=== PATIENT | female | born 1945 | race Caucasian/White ===

== ENCOUNTER 2019-11-19 19:35 | Inpatient (IN) | payer MEDICARE, OTHER ==
[2019-11-19] MEDS ORDERED: HumaLOG 300 UNITS/3 ML VIAL SC PRN (21:24)
[2019-11-19] MEDS ORDERED: Dextrose 50% Abboject 50 ML SYRINGE IVP PRN (21:24)
[2019-11-19] MEDS ORDERED: Dextrose 5% in Water 1,000 ML IV PRN (21:24)
[2019-11-19] MEDS ORDERED: traMADol HCl 50 MG TAB PO PRN (21:26)
[2019-11-19 21:40] VITALS: BMI 29.5
[2019-11-19] MEDS: traMADol HCl 50 MG TAB PO PRN (21:54)
[2019-11-19] MEDS ORDERED: Atorvastatin Calcium 40 MG TAB PO SCH (22:00)
[2019-11-19] MEDS ORDERED: Gabapentin 300 MG CAP PO SCH (22:00)
[2019-11-19] MEDS ORDERED: Nebivolol HCl 2.5 MG TAB PO SCH (22:00)
[2019-11-20] MEDS: Levothyroxine Sodium 50 MCG TAB PO SCH (05:15)
[2019-11-20] MEDS: traMADol HCl 50 MG TAB PO PRN ×2 (05:18→15:13)
[2019-11-20] MEDS: HumaLOG 300 UNITS/3 ML VIAL SC PRN ×3 (06:23→17:25)
[2019-11-20] MEDS: Potassium Chloride 10 MEQ TAB PO SCH (08:12)
[2019-11-20] MEDS: Furosemide 40 MG TAB PO SCH (08:12)
[2019-11-20] MEDS: metFORMIN 500 MG TAB PO SCH ×2 (08:12→17:24)
[2019-11-20] MEDS: Aspirin 81 mg Enteric Coated Tablet PO SCH (08:12)
[2019-11-20] MEDS: Clopidogrel Bisulfate 75 MG TAB PO SCH (08:13)
[2019-11-20] MEDS: Ezetimibe 10 MG TAB PO SCH (08:13)
--- NOTE | 2019-11-20 19:12 | HP ---
PRINCIPAL DIAGNOSES: Recent admission to the hospital for shortness of breath and was diagnosed with acute hypoxemic respiratory failure, acute on chronic diastolic congestive heart failure and atelectasis, and was felt to be a candidate for physical therapy and transferred here. The patient is up in her chair and has oxygen at 1 L/minute via nasal cannula. She states that she has been compliant with her incentive spirometry. She denies any PND or orthopnea. She denies any pain. She does state that she cannot take the statin and wants it off her list. She apparently is on injectable medication every 2 weeks. No fever or chills. Denies any cough. PAST MEDICAL HISTORY: 1. Diabetes mellitus type 2. 2. Hypertension. 3. Dyslipidemia. 4. Coronary artery disease, status post recent CABG. 5. Acute hypoxemic respiratory failure. 6. Chronic diastolic congestive heart failure. 7. Resolved leukocytosis. 8. Anemia, likely due to acute blood loss. PAST SURGICAL HISTORY: 1. Appendectomy. 2. Cholecystectomy. 3. Recent coronary artery bypass grafting. 4. History of coronary angiogram and stent placement in the past. FAMILY HISTORY: Positive for diabetes mellitus. ALLERGIES: CODY INHIBITORS, MORPHINE, AND FENTANYL. MEDICATIONS: She has been transferred here on the following medications; 1. Ecotrin aspirin 81 mg daily. 2. Lipitor 40 mg daily, but the patient states that it causes muscle aches and she does not want to take it. 3. Plavix 75 mg daily. 4. Lovenox which I have started her on 40 mg subcu daily. 5. Zetia 10 mg daily. 6. Lasix 40 mg daily. 7. Gabapentin 600 mg at bedtime. 8. Levoxyl 50 mcg daily. 9. Metformin 500 mg b.i.d. 10. Bystolic 5 mg daily. 11. Protonix 40 mg b.i.d. 12. Potassium chloride 10 mEq daily. 13. Tramadol 50 mg q.6 p.r.n. REVIEW OF SYSTEMS: CARDIOVASCULAR SYSTEM: Denies any chest pain, shortness of breath, palpitations, PND, orthopnea or pedal edema. Her incisional chest pain is improving. GENERAL: Denies any fever, chills, myalgia, improving fatigue. RESPIRATORY SYSTEM: Denies any chronic cough, expectoration, or pleuritic-type chest pain. GASTROINTESTINAL SYSTEM: Denies any nausea, vomiting, diarrhea, constipation, hematemesis, melena, or hematochezia. GENITOURINARY SYSTEM: Denies any frequency, urgency, dysuria, or hematuria. CENTRAL NERVOUS SYSTEM: Denies any focal numbness, weakness, or fainting spells. EENT: Denies any changes with her vision, hearing, or swallowing. SKIN: Denies any rash. EXTREMITIES: Occasional joint pains. PHYSICAL EXAMINATION: GENERAL: Pleasant 73-year-old female, who is up in her chair and in no distress. She responds appropriately to questions. She is alert, awake, and oriented x3. VITAL SIGNS: She is afebrile. Heart rate is 86, respirations 22, oxygen saturation 96% on 1 L via nasal cannula, blood pressure is 124/88. HEENT: Normocephalic and atraumatic. Pupils are equally reacting to light and accommodation. NECK: No JVD, thyromegaly, cervical adenopathy, or throat exudates. No carotid bruits. CARDIOVASCULAR SYSTEM: S1, S2 plus. Rate and rhythm regular. RESPIRATORY SYSTEM: Normal vesicular breath sounds heard in all lung cote with occasional rhonchi. ABDOMEN: Soft, nontender. Bowel sounds heard in all quadrants. EXTREMITIES: Without cyanosis or clubbing. Trace pedal edema. CENTRAL NERVOUS SYSTEM: Awake and responsive. Cranial nerves 2 through 12 intact. Grossly nonfocal. LABORATORY DATA: Laboratory values from this morning, I did ask nursing to put in an order for BMP and CBC, apparently this was not done. Her blood sugars are 207, 166, 156, and 167. They did do BNP, at 36.2. IMPRESSION: 1. Coronary disease status post recent coronary artery bypass graft. 2. Acute on chronic diastolic congestive heart failure, improving. 3. Diabetes mellitus type 2. 4. Hypertension. 5. Dyslipidemia. 6. Hypothyroidism. 7. Acute hypoxemic respiratory failure. PLAN: 1. Continue current medications. 2. 1800 calorie heart healthy ADA diet. 3. Accu-Cheks with sliding scale coverage. 4. DVT prophylaxis-we will start her on Lovenox. 5. Decubitus precautions. 6. Sternal precaution. 7. Stress ulcer prophylaxis. 8. Accu-Cheks with sliding scale coverage. 9. PT, OT eval and treat. 10. Stop statin per the patient's request. 11. Discussed with the patient in detail and all questions answered. Job ID: [id number]
[2019-11-20] MEDS ORDERED: Atorvastatin Calcium 40 MG TAB PO SCH (21:00)
[2019-11-20] MEDS: Enoxaparin Sodium 40 MG/0.4 ML SYRINGE SC SCH (21:10)
[2019-11-20] MEDS: Nebivolol HCl 2.5 MG TAB PO SCH (21:11)
[2019-11-20] MEDS: Gabapentin 300 MG CAP PO SCH (21:11)
[2019-11-21] MEDS: Levothyroxine Sodium 50 MCG TAB PO SCH (05:20)
[2019-11-21] MEDS: traMADol HCl 50 MG TAB PO PRN (05:20)
[2019-11-21 05:25] LABS: #Basophils 0.3 thou/uL (0.0-0.2); #Eosinphils 0.8 thou/uL (0.0-0.7); #Lymphocytes 3.1 thou/uL (1.20-3.40); #Monocytes 1.6 thou/uL (0.11-0.59); #Neutrophils 12.4 thou/uL (1.40-6.50); %Basophils 1.4 % (0.0-1.0); %Eosinophils 4.3 % (0.0-10.0); %Lymphocytes 17.3 % (21.0-51.0); %Monocytes 8.7 % (0.0-10.0); %Neutrophils 68.3 % (42.0-75.0); Hemoglobin 8.4 g/dL (12.0-16.0); Mean Corpuscular HGB CONC 32.2 g/dL (32.0-36.0); Mean Corpuscular Hemoglobin 30.5 pg (27.0-31.0); Mean Corpuscular Volume 94.8 fL (78.0-98.0); Mean Platelet Volume 7.2 fL (7.4-10.4); Platelet Count 539 thou/uL (130-400); RBC Distribution Width 14.6 % (11.5-14.5); Red Blood Cell (RBC) Count 2.75 mill/uL (4.20-5.40); White Blood Cell (WBC) Count 18.1 thou/uL (4.8-10.8)
[2019-11-21 05:41] LABS: Anion Gap 15 mmol/L (10-20); BUN (Urea Nitrogen) 28 mg/dL (9.8-20.1); Calc. Creatinine Clearance 56 mL/min (70-130); Carbon Dioxide 29 mmol/L (23-31); Chloride 94 mmol/L (98-107); Estimated GFR-MDRD 45; Glucose 152 mg/dL (83-110); Potassium 4.4 mmol/L (3.5-5.1); Sodium 134 mmol/L (136-145)
[2019-11-21] MEDS: HumaLOG 300 UNITS/3 ML VIAL SC PRN ×2 (05:49→11:56)
[2019-11-21] MEDS: Ondansetron ODT 4 MG TAB PO PRN (07:52)
[2019-11-21] MEDS: Furosemide 40 MG TAB PO SCH (07:53)
[2019-11-21] MEDS: Potassium Chloride 10 MEQ TAB PO SCH (07:53)
[2019-11-21] MEDS: Aspirin 81 mg Enteric Coated Tablet PO SCH (07:53)
[2019-11-21] MEDS: Clopidogrel Bisulfate 75 MG TAB PO SCH (07:53)
[2019-11-21] MEDS: metFORMIN 500 MG TAB PO SCH ×2 (07:53→17:06)
[2019-11-21] MEDS: Ezetimibe 10 MG TAB PO SCH (07:53)
--- NOTE | 2019-11-21 13:42 | PRG ---
DATE OF SERVICE: 11/21/2019 SUBJECTIVE: Ms. Al had an episode of nausea this morning and has resolved with Zofran. She is doing well otherwise. Denies any questions or concerns. OBJECTIVE: VITAL SIGNS: She is afebrile. Heart rate is 83, respirations 20, oxygen saturation 95% on 1 L, blood pressure is 117/59. CARDIOVASCULAR: S1 and S2 plus. RESPIRATORY: Normal vesicular breath sounds. ABDOMEN: Soft, nontender. Bowel sounds heard in all quadrants. EXTREMITIES: Without cyanosis or clubbing. Peripheral pulses are palpable. Sternal incision is healthy. CENTRAL NERVOUS SYSTEM: Improving deconditioning. LABORATORY DATA: White count is 18.1 with hemoglobin and hematocrit of 8.4 and 26.0. No bandemia. Sodium 134, potassium 4.4, BUN and creatinine 28 and 1.19. Blood sugars are 168, 166, 152, and 169. IMPRESSION: 1. Leukocytosis, unknown etiology. I am wondering whether some of it is related to demargination due to her nausea and vomiting early this morning. 2. Coronary artery disease, status post coronary artery bypass graft. 3. Diabetes mellitus type 2. 4. Acute hypoxemic respiratory failure. 5. Chronic diastolic congestive heart failure. 6. Anemia, likely due to acute blood loss. PLAN: 1. Continue current medications. 2. Titrate oxygen as tolerated. 3. Continue incentive spirometry. 4. 1800 calorie heart healthy ADA diet. 5. Accu-Cheks with sliding scale coverage. 6. Monitor for any other signs of infection. 7. Recheck CBC in the morning. 8. Discussed with the patient in detail and all questions answered. 9. No family at bedside. Job ID: [id number]
[2019-11-21] MEDS: Gabapentin 300 MG CAP PO SCH (20:24)
[2019-11-21] MEDS: Nebivolol HCl 2.5 MG TAB PO SCH (20:24)
[2019-11-21] MEDS: Enoxaparin Sodium 40 MG/0.4 ML SYRINGE SC SCH (20:25)
[2019-11-22] MEDS: Levothyroxine Sodium 50 MCG TAB PO SCH (05:19)
[2019-11-22 05:24] LABS: #Basophils 0.2 thou/uL (0.0-0.2); #Eosinphils 0.9 thou/uL (0.0-0.7); #Lymphocytes 2.5 thou/uL (1.20-3.40); #Monocytes 1.6 thou/uL (0.11-0.59); #Neutrophils 10.8 thou/uL (1.40-6.50); %Basophils 1.5 % (0.0-1.0); %Eosinophils 5.6 % (0.0-10.0); %Lymphocytes 15.5 % (21.0-51.0); %Neutrophils 67.5 % (42.0-75.0); Hemoglobin 8.2 g/dL (12.0-16.0); Mean Corpuscular HGB CONC 31.2 g/dL (32.0-36.0); Mean Corpuscular Hemoglobin 29.8 pg (27.0-31.0); Mean Corpuscular Volume 95.3 fL (78.0-98.0); Mean Platelet Volume 7.4 fL (7.4-10.4); Platelet Count 512 thou/uL (130-400); RBC Distribution Width 14.3 % (11.5-14.5); Red Blood Cell (RBC) Count 2.76 mill/uL (4.20-5.40)
[2019-11-22] MEDS: HumaLOG 300 UNITS/3 ML VIAL SC PRN (05:24)
[2019-11-22] MEDS: Potassium Chloride 10 MEQ TAB PO SCH (08:15)
[2019-11-22] MEDS: Aspirin 81 mg Enteric Coated Tablet PO SCH (08:15)
[2019-11-22] MEDS: Clopidogrel Bisulfate 75 MG TAB PO SCH (08:15)
[2019-11-22] MEDS: metFORMIN 500 MG TAB PO SCH ×2 (08:16→16:15)
[2019-11-22] MEDS: Ezetimibe 10 MG TAB PO SCH (08:16)
[2019-11-22] MEDS: Furosemide 40 MG TAB PO SCH (08:16)
--- NOTE | 2019-11-22 09:14 | PRG ---
DATE OF SERVICE: 11/22/2019 SUBJECTIVE: Ms. Al is doing the same. Denies any complaints. No fever or chills. No further nausea or vomiting, slowly improving with therapy. OBJECTIVE: VITAL SIGNS: She is afebrile. Heart rate is 79, respirations 18, oxygen saturation 94% on nasal cannula 1 L, blood pressure 104/59. CARDIOVASCULAR: S1-S2 plus. RESPIRATORY: Normal vesicular breath sounds. ABDOMEN: Soft and nontender. Bowel sounds heard in all quadrants. EXTREMITIES: Without cyanosis or clubbing. Superficial contusion to the left thigh at the site of vein harvest, but the site is healthy. LABORATORY VALUES: White count is down to 60,000, H and H are 8.2 and 26.3, platelet count is 512. IMPRESSION: 1. Leukocytosis, slowly improving. 2. Coronary artery disease, status post coronary artery bypass grafting. 3. Acute hypoxemic respiratory failure. 4. Chronic diastolic congestive heart failure. 5. Diabetes mellitus type 2. 6. Hypertension. 7. Dyslipidemia. 8. Anemia, likely due to acute blood loss. PLAN: 1. Continue current medications. 2. 1800 calorie heart healthy ADA diet. 3. Redo blood cultures, urine culture just to be safe. I do not see any clinical signs of infection. 4. Continue Lovenox. 5. Decubitus precautions. 6. Physical therapy. 7. Monitor respiratory status and titrate oxygen. 8. Routine laboratory values. Job ID: [id number]
[2019-11-22] MEDS: traMADol HCl 50 MG TAB PO PRN (09:43)
[2019-11-22] MEDS: Docusate 100 MG CAP PO PRN (16:26)
[2019-11-22] MEDS: Nebivolol HCl 2.5 MG TAB PO SCH (20:38)
[2019-11-22] MEDS: Gabapentin 300 MG CAP PO SCH (20:38)
[2019-11-22] MEDS: Enoxaparin Sodium 40 MG/0.4 ML SYRINGE SC SCH (20:38)
[2019-11-22] MEDS: Ondansetron ODT 4 MG TAB PO PRN (21:04)
[2019-11-23] MEDS: Levothyroxine Sodium 50 MCG TAB PO SCH (05:33)
[2019-11-23] MEDS: HumaLOG 300 UNITS/3 ML VIAL SC PRN ×2 (05:33→11:52)
[2019-11-23 05:51] LABS: #Basophils 0.3 thou/uL (0.0-0.2); #Eosinphils 0.8 thou/uL (0.0-0.7); #Lymphocytes 3.3 thou/uL (1.20-3.40); #Monocytes 1.2 thou/uL (0.11-0.59); #Neutrophils 9.6 thou/uL (1.40-6.50); %Basophils 1.9 % (0.0-1.0); %Eosinophils 5.1 % (0.0-10.0); %Lymphocytes 21.7 % (21.0-51.0); %Monocytes 7.8 % (0.0-10.0); %Neutrophils 63.6 % (42.0-75.0); Hemoglobin 8.8 g/dL (12.0-16.0); Mean Corpuscular Hemoglobin 29.9 pg (27.0-31.0); Mean Corpuscular Volume 96.5 fL (78.0-98.0); Mean Platelet Volume 7.4 fL (7.4-10.4); Platelet Count 553 thou/uL (130-400); RBC Distribution Width 14.7 % (11.5-14.5); Red Blood Cell (RBC) Count 2.93 mill/uL (4.20-5.40); White Blood Cell (WBC) Count 15.1 thou/uL (4.8-10.8)
[2019-11-23] MEDS: Ondansetron ODT 4 MG TAB PO PRN (07:17)
[2019-11-23] MEDS: Furosemide 40 MG TAB PO SCH (08:24)
[2019-11-23] MEDS: Potassium Chloride 10 MEQ TAB PO SCH (08:24)
[2019-11-23] MEDS: Clopidogrel Bisulfate 75 MG TAB PO SCH (08:24)
[2019-11-23] MEDS: Aspirin 81 mg Enteric Coated Tablet PO SCH (08:24)
[2019-11-23] MEDS: metFORMIN 500 MG TAB PO SCH ×2 (08:24→16:15)
[2019-11-23] MEDS: Ezetimibe 10 MG TAB PO SCH (08:24)
[2019-11-23] MEDS: Docusate 100 MG CAP PO PRN (13:46)
--- NOTE | 2019-11-23 20:52 | PRG ---
DATE OF SERVICE: 11/23/[address] Delia Winslow. SUBJECTIVE: The patient feels well lying in the bed wanting more therapy. She is still having some mild left-sided chest pain with no cough, fever, or pleurisy. OBJECTIVE: VITAL SIGNS: Temperature is 98.4, pulse 81, respirations 20, O2 saturations 95% on 1 L. Blood pressure 116/61. LUNGS: Clear. CARDIAC: Shows regular rhythm. ABDOMEN: Soft and nontender. EXTREMITIES: Show trace edema. No clubbing, or cyanosis. LABORATORY DATA: Shows white count of 15,100, hematocrit 28, hemoglobin 8.8. Accu-Cheks range from 138 to 191. ASSESSMENT: 1. Coronary artery disease, status post coronary artery bypass graft. 2. Leukocytosis still elevated but improving. 3. Chronic diastolic heart failure compensated. 4. Diabetes type 2, controlled to goal. 5. Hypertension, controlled to goal. PLAN: 1. Continue PT, OT. To start again in 2 days. 2. Await results of blood cultures and urine cultures which are showing no growth at this time. 3. Continue incentive spirometry and respiratory therapy and hopefully titrate off oxygen. 4. Continue deep venous thrombosis and stress ulcer prophylaxis. Job ID: [id number]
[2019-11-23] MEDS: Nebivolol HCl 2.5 MG TAB PO SCH (20:53)
[2019-11-23] MEDS: Gabapentin 300 MG CAP PO SCH (20:53)
[2019-11-23] MEDS: Enoxaparin Sodium 40 MG/0.4 ML SYRINGE SC SCH (20:54)
[2019-11-24] MEDS: Levothyroxine Sodium 50 MCG TAB PO SCH (05:16)
[2019-11-24] MEDS: Potassium Chloride 10 MEQ TAB PO SCH (08:21)
[2019-11-24] MEDS: Furosemide 40 MG TAB PO SCH (08:21)
[2019-11-24] MEDS: metFORMIN 500 MG TAB PO SCH ×2 (08:21→16:29)
[2019-11-24] MEDS: Ezetimibe 10 MG TAB PO SCH (08:21)
[2019-11-24] MEDS: Aspirin 81 mg Enteric Coated Tablet PO SCH (08:21)
[2019-11-24] MEDS: Clopidogrel Bisulfate 75 MG TAB PO SCH (08:21)
[2019-11-24] MEDS: HumaLOG 300 UNITS/3 ML VIAL SC PRN (12:07)
[2019-11-24] MEDS: Gabapentin 300 MG CAP PO SCH (21:04)
[2019-11-24] MEDS: Enoxaparin Sodium 40 MG/0.4 ML SYRINGE SC SCH (21:04)
[2019-11-24] MEDS: Nebivolol HCl 2.5 MG TAB PO SCH (21:04)
[2019-11-25] MEDS: Levothyroxine Sodium 50 MCG TAB PO SCH (05:25)
[2019-11-25] MEDS: Furosemide 40 MG TAB PO SCH (08:08)
[2019-11-25] MEDS: Potassium Chloride 10 MEQ TAB PO SCH (08:08)
[2019-11-25] MEDS: metFORMIN 500 MG TAB PO SCH ×2 (08:08→16:31)
[2019-11-25] MEDS: Aspirin 81 mg Enteric Coated Tablet PO SCH (08:08)
[2019-11-25] MEDS: Clopidogrel Bisulfate 75 MG TAB PO SCH (08:09)
[2019-11-25] MEDS: Ezetimibe 10 MG TAB PO SCH (08:09)
[2019-11-25] MEDS: HumaLOG 300 UNITS/3 ML VIAL SC PRN (12:03)
[2019-11-25] MEDS: Gabapentin 300 MG CAP PO SCH (21:03)
[2019-11-25] MEDS: Enoxaparin Sodium 40 MG/0.4 ML SYRINGE SC SCH (21:03)
[2019-11-25] MEDS: Nebivolol HCl 2.5 MG TAB PO SCH (21:04)
[2019-11-26] MEDS: Levothyroxine Sodium 50 MCG TAB PO SCH (05:23)
--- NOTE | 2019-11-26 06:07 | PRG ---
DATE OF SERVICE: 11/24/2019 SUBJECTIVE: The patient feels well, lying in the bed, resting, awaiting more therapy tomorrow, not complaining of any soreness and her leg is feeling better, where she had some bruising from her vein harvest. Not having any angina, or shortness of breath. OBJECTIVE: VITAL SIGNS: Temperature is 96, pulse 91, respirations 16, O2 sats 94% on 1 L, blood pressure 119/59. LUNGS: Clear. Chest wall shows healing sternotomy site. CARDIAC: Shows regular rhythm. ABDOMEN: Soft and nontender. SKIN/EXTREMITIES: Show healing vein harvest site in the left thigh. ASSESSMENT: 1. Resolving coronary artery bypass graft. 2. Persistent leukocytosis, improving. 3. Diastolic heart failure, compensated. 4. Diabetes, fair control, adequate. PLAN: Await further PT tomorrow. Continue up in the room today. Continue incentive spirometry. Titrate off oxygen. Job ID: [id number]
--- NOTE | 2019-11-26 06:13 | PRG ---
DATE OF SERVICE: 11/25/2019 SUBJECTIVE: The patient feels sore today in her chest as she has been working with therapy and has not had her pillow to compress the sternum. She is having no shortness of breath or chest pain, only sternal pain. She is having no further leg pain. She states she did well with therapy but just exhausted. OBJECTIVE: VITAL SIGNS: Temperature is 96.9, pulse 90, respirations 18, O2 saturations 95% on room air, blood pressure 123/61. LUNGS: Clear. CARDIAC: Shows regular rhythm. ABDOMEN: Soft and nontender. ASSESSMENT: 1. Resolving coronary artery bypass graft with improving deconditioning. 2. Sternal pain and we will stress compression with breathing and exercise. 3. Healing vein harvest graft. 4. Type 2 diabetes, controlled to goal. 5. Hypertension, controlled to goal. PLAN: 1. Continue DVT and stress ulcer prophylaxis. 2. Continue incentive spirometry, respiratory therapy. 3. Continue compression to sternum with exercise. 4. Urine culture showing less than 5000 colonies of yeast only. We will not treat as asymptomatic, and blood cultures negative, so we will continue to monitor and repeat CBC later in the week. Job ID: [id number]
[2019-11-26] MEDS: Ezetimibe 10 MG TAB PO SCH (08:15)
[2019-11-26] MEDS: Potassium Chloride 10 MEQ TAB PO SCH (08:15)
[2019-11-26] MEDS: Aspirin 81 mg Enteric Coated Tablet PO SCH (08:15)
[2019-11-26] MEDS: Furosemide 40 MG TAB PO SCH (08:15)
[2019-11-26] MEDS: Clopidogrel Bisulfate 75 MG TAB PO SCH (08:15)
[2019-11-26] MEDS: metFORMIN 500 MG TAB PO SCH ×2 (08:15→17:16)
--- NOTE | 2019-11-26 15:37 | PRG ---
DATE OF SERVICE: 11/26/2019 SUBJECTIVE: Ms. Al is up in her chair. She is off her oxygen. She apparently is ambulating well with minimal assistance, going to check with therapy and see when she might be ready to go home. She is hoping to go home tomorrow. OBJECTIVE: VITAL SIGNS: She is afebrile, heart rate 76, respirations 18, oxygen saturation 95% on room air, blood pressure is 109/59. CARDIOVASCULAR SYSTEM: S1 and S2 plus. RESPIRATORY SYSTEM: Normal vesicular breath sounds. ABDOMEN: Soft, nontender. Bowel sounds heard in all quadrants. EXTREMITIES: Without cyanosis or clubbing. CENTRAL NERVOUS SYSTEM: Improving deconditioning. LABORATORY DATA: Her blood sugars are well controlled at 111, 135, 147, and 120. Urine culture grew less than 5000 colony-forming units of yeast species. Blood cultures are negative x48 hours. IMPRESSION: 1. Coronary artery disease, status post coronary artery bypass grafting. 2. Resolved acute hypoxemic respiratory failure. 3. Chronic diastolic congestive heart failure. 4. Diabetes mellitus type 2. 5. Hypertension. 6. Dyslipidemia. 7. Anemia. 8. Leukocytosis, persistent. PLAN: 1. Continue current medications. 2. 1800 calorie heart healthy ADA diet. 3. Check with Physical Therapy as to discharge. I anticipate discharge tomorrow. 4. She wants home health. She does not have any preference. She wants me to choose one. I will send the referral to Home Health. 5. Continue activity as tolerated. 6. The patient states that she is not on any new medications. She is going to be off her Lovenox and her sliding scale when she goes home, so she stated she has all of her other medicines and she uses Pharmacy in [place]. Her spouse is planning on coming back to pick her up tomorrow. Job ID: [id number]
[2019-11-26] MEDS: Gabapentin 300 MG CAP PO SCH (20:22)
[2019-11-26] MEDS: Nebivolol HCl 2.5 MG TAB PO SCH (20:22)
[2019-11-26] MEDS: Enoxaparin Sodium 40 MG/0.4 ML SYRINGE SC SCH (20:22)
[2019-11-27] MEDS: Levothyroxine Sodium 50 MCG TAB PO SCH (05:16)
[2019-11-27 08:21] VITALS: BP 112/70; TEMP 97.8
[2019-11-27] MEDS: metFORMIN 500 MG TAB PO SCH (09:32)
[2019-11-27] MEDS: Aspirin 81 mg Enteric Coated Tablet PO SCH (09:32)
[2019-11-27] MEDS: Furosemide 40 MG TAB PO SCH (09:32)
[2019-11-27] MEDS: Clopidogrel Bisulfate 75 MG TAB PO SCH (09:32)
[2019-11-27] MEDS: Ezetimibe 10 MG TAB PO SCH (09:32)
[2019-11-27] MEDS: Potassium Chloride 10 MEQ TAB PO SCH (09:32)
--- NOTE | 2019-11-28 02:46 | DIS ---
DATE OF ADMISSION: 11/19/2019 DATE OF DISCHARGE: 11/27/2019 PRINCIPAL DIAGNOSIS: Coronary artery disease, status post coronary artery bypass grafting. SECONDARY DIAGNOSES: 1. Diabetes mellitus, type 2. 2. Hypertension. 3. Dyslipidemia. 4. Chronic diastolic congestive heart failure. 5. Leukocytosis, fluctuating with negative cultures and workup for infection. 6. Anemia, likely due to acute blood loss. 7. Acute hypoxemic respiratory failure, resolved. COMPLICATIONS: None. ADVERSE REACTIONS: None. PROCEDURES: None. CONSULTATIONS: Physical Therapy and Occupational Therapy. HOSPITAL COURSE: Patient was admitted as a transfer from [facility] in [place] after being admitted for acute hypoxemic respiratory failure and acute on chronic diastolic congestive heart failure. Initially, she was felt to have an infection and pneumonia due to leukocytosis and possible infiltrate, but this was ruled out. She was stopped off her antibiotics. She was felt to be a candidate for inpatient therapy and transferred here. She has been weaned off her oxygen and has done well. She is ambulating on her own and she was deemed to be safe to be discharged home. [facility] has been arranged as patient does not have any preferences she wanted me to choose one. She does not need any prescriptions. She was advised to follow up with her PCP in the next 7 to 10 days to have her blood counts rechecked and if she develops any fever, any cough, any rash, any signs of infection, then she is to inform either us or her PCP. PHYSICAL EXAMINATION: VITAL SIGNS: On the day of discharge, she is afebrile. Heart rate is 82, respirations 18, oxygen saturation 94% on room air, and blood pressure 112/70. CARDIOVASCULAR SYSTEM: S1, S2 plus. RESPIRATORY SYSTEM: Normal vesicular breath sounds. ABDOMEN: Soft and nontender. Bowel sounds heard in all quadrants. EXTREMITIES: Without cyanosis or clubbing. Sternal incision is healthy. CENTRAL NERVOUS SYSTEM: Grossly nonfocal. DISCHARGE MEDICATIONS: Same as admission which are: 1. Ecotrin 81 mg daily. 2. Plavix 75 mg daily. 3. Colace 100 mg b.i.d. p.r.n. 4. Zetia 10 mg daily. 5. Lasix 40 mg daily. 6. Gabapentin 600 mg at bedtime. 7. Levoxyl 50 mcg daily in the morning on an empty stomach. 8. Metformin 500 mg b.i.d. 9. Bystolic 5 mg at bedtime. 10. Pantoprazole 40 mg b.i.d. 11. Potassium 10 mEq daily. DIET: 1800-calorie heart-healthy ADA diet. ACTIVITY: As tolerated. FOLLOWUP: She is to follow up with her cardiothoracic surgeon and her PCP as instructed before in 7 to 10 days. She is a candidate for home health. She qualifies as she should not drive until she follows up with her rubber roller grinder. She is homebound. She does need continued home physical therapy and monitoring of her blood pressure and her oxygen status as she has just been weaned off her oxygen and she was recently diagnosed with acute hypoxemic respiratory failure. She also has chronic diastolic congestive heart failure, so her cardiovascular system needs to be monitored. Please use this document as a [id number] evaluation for home health. Patient does not need any prescriptions. She uses [facility] in [place]. She did state that she will call me if she needs anything. For full details, please see chart. Total time spent on this discharge, including coordination of care 35 minutes. Job ID: [id number]
== END 2019-11-27 12:45 | disposition home health service (06) | DRG 949 ==
LOC: UNDOADMIN 19:35 → NAV ACUTE 19:35
PROVIDERS: ADMIT Internal Medicine; ATTEND Internal Medicine
DX: Z48.812 Encounter for surgical aftercare following surgery on the circulatory system (principal); J96.01 Acute respiratory failure with hypoxia; I50.32 Chronic diastolic (congestive) heart failure; D62 Acute posthemorrhagic anemia; I25.10 Atherosclerotic heart disease of native coronary artery without angina pectoris; I11.0 Hypertensive heart disease with heart failure; E11.9 Type 2 diabetes mellitus without complications; E03.9 Hypothyroidism, unspecified; D72.829 Elevated white blood cell count, unspecified; E78.5 Hyperlipidemia, unspecified; Z90.49 Acquired absence of other specified parts of digestive tract; Z79.01 Long term (current) use of anticoagulants; Z79.82 Long term (current) use of aspirin; Z79.84 Long term (current) use of oral hypoglycemic drugs; Z95.1 Presence of aortocoronary bypass graft
CPT/HCPCS: 36415; 36416; 80048; 83880; 85025; 87040; 87086; J1650; Q0162